=== PATIENT | female | born 1955 | race Caucasian/White ===

== ENCOUNTER → 2018-10-02 14:57 | Outpatient (CLI) | payer OTHER, MEDICARE, SELFPAY ==
--- NOTE | 2018-10-02 15:05 | DI.RAD.S_ITS ---
PROCEDURE: XR SHOULDER LT MIN 2V INDICATIONS: Bilal shoulder injured pins bent TECHNIQUE: 3 views of the shoulder were acquired. COMPARISON: None. FINDINGS: Bones: No fractures or dislocations. No suspicious bony lesions. Visualized ribs appear intact. Moderate acromioclavicular joint or glenohumeral joint osteoarthritis is seen. Soft tissues: No suspicious soft tissue calcifications. IMPRESSION: Moderate left shoulder joint osteoarthritis. No fracture or dislocation. Dictated by: Tonio Conte M.D. on 10/02/2018 at 15:44 Approved by: Tonio Conte M.D. on 10/02/2018 at 15:45
--- NOTE | 2018-10-02 15:05 | DI.RAD.S_ITS ---
PROCEDURE: XR SHOULDER RT MIN 2V INDICATIONS: Bilateral shoulder impingement syndrome TECHNIQUE: 3 views of the shoulder were acquired. COMPARISON: None. FINDINGS: Bones: Moderate acromioclavicular joint and glenohumeral joint osteophyte is seen. No fractures or dislocations. No suspicious bony lesions. Visualized ribs appear intact. Soft tissues: No suspicious soft tissue calcifications. IMPRESSION: Moderate right shoulder joint osteoarthritis. No acute fracture or dislocation. Dictated by: Tonio Conte M.D. on 10/02/2018 at 15:45 Approved by: Tonio Conte M.D. on 10/02/2018 at 15:45
== END ==
PROVIDERS: PCP Family Medicine; Visit Provider Physical Medicine & Rehabilitation
DX: M19.012 Primary osteoarthritis, left shoulder (principal)
CPT/HCPCS: 73030

== ENCOUNTER 2018-12-09 07:31 | Outpatient (CLI) | payer OTHER, MEDICARE, SELFPAY ==
[2018-12-09] VITALS (9 sets, daily range): BP systolic 106–123; BP diastolic 55–78; PULSE 59–70; RESP 16; TEMP 36.7; O2SAT 96–100
--- NOTE | 2018-12-09 07:44 | DI.RAD.S_ITS ---
PROCEDURE: PAIN C/T INTERLAMINAR INJECT INDICATIONS: RADICULOPATHY FINDINGS: Fluoroscopic spot filming was performed to verify placement of spinal needles at the T7-T8 level(s), as labeled on the films. Appropriate location(s) of the needle tip(s) was confirmed by injection of iodinated contrast. Dictated by: Azar Baldwin M.D. on 12/09/2018 at 10:28 Approved by: Azar Baldwin M.D. on 12/09/2018 at 10:29
[2018-12-09] MEDS: fentaNYL 100 MCG/2 ML INJ 50 MCG IV (08:31)
[2018-12-09] MEDS: MIDAZOLAM 5 MG/5 ML VIAL IV (08:31)
[2018-12-09] MEDS: IOPAMIDOL 15 ML VIAL 3 ML INJ (08:41)
[2018-12-09] MEDS: DEXAMETHASONE 10 MG/ML VIAL 30 MG INJ (08:41)
--- NOTE | 2018-12-09 09:01 | PC.NURSE ---
ASSISTING PT OFF TABLE AND TRANSPORTING TO POST PROC AREA IN STABLE CONDITION
--- NOTE | 2018-12-09 09:08 | P.PCN_ITS ---
Procedures Date/Time Date of procedure: 12/09/18 Time of procedure: 09:06 General Procedure description: Preop diagnosis: Thoracic stenosis with HNP Postprocedure diagnosis: Thoracic stenosis with HNP Physician: Chad Villegas D.O. Indications: Kiersten is referred by Dr. Frias for treatment of thoracic DDD/DJD with radiculopathy Description of procedure: Fluoroscopic guided, contrast controlled T7/8 translaminar epidural steroid i njection with conscious sedation. Following review of allergy review potential side effects and complications, including, but not necessarily limited to, infection, allergic reaction, local tissue breakdown, temporary as well as permanent nerve injury, stroke, paralysis and possible , the patient indicated that they understood and agreed to proceed. An informed consent document was signed by the patient, witnessed by the nurse, and placed in the patient's chart. Additionally other treatment options including modalities, medications and physical therapy were reviewed with the patient. After review of previous anaesthesic history and IV conscious sedation the patient was deemed safe to proceed with todays procedure with IV conscious sedation as ASA class II designation. Safety time-out was performed to confirm patient ID, procedure to be performed and site of procedure. IV sedation was accomplished with a combination of 3mg of Versed and 50mcg of Fentanyl administered by the RN after DO order, titrated to patient comfort during the course of the procedure while the patient remained responsive to all verbal commands In the prone position, following sterile prep and drape of the thoracic region the T7/8 translaminar space was identified fluoroscopically. The skin was anesthetized via 25 gauge 1.5 needles with 1% lidocaine solution. At this point a 20 gauge epidural needle was atraumatically introduced and advanced under fluoroscopic guidance into the region of the T7/8 translaminar space depth was confirmed on lateral view. Radiographic data, including multiple fluoroscopic views of the thoracic spine, reveals spinal needle at the T7/8 translaminar space. Lateral views then showed the placement of the needle in the epidural space. Subsequent view show contra st material flowing superiorly and inferiorly in the epidural space. No vascular or intrathecal uptake is observed. At this point using loss of resistance technique with saline and the epidural space was entered. This was confirmed followed negative aspiration and injection of approximately 1.5 cc of Isovue 200 showed excellent epidural flow without vascular or intrathecal uptake. At this point, 1 cc of 1% lidocaine solution was admitted as a test dose and the patient was observed for an appropriate period of time without signs or symptoms of complications, including abdominal pain, shortness of breath, bilateral upper and lower extremity weakness, nausea and vomiting, prior to steroid injection. Subsequently, 3cc or 30mg of dexamethasone was then injected without incident. The patient tolerated the procedure well without signs of complications and subsequently was transferred to the recovery room for further monitoring. The patient was then transferred to the recovery area with their observed for an appropriate time after the injection. Patient reported a VAS score of 7 prior to the procedure and postprocedure VAS of 2. Total fluoroscopy time: 56.3 sec Total conscious sedation time: 24 min Chad Villegas D.O. Complications: none
--- NOTE | 2018-12-09 09:18 | PC.NURSE ---
Pt returned to pre procedure room 904 via wheelchair, awake and alert and able to get from w/c to chair without problems. Resumed monitoring from Sara HANSON.
== END 2018-12-09 09:21 ==
PROVIDERS: PCP Family Medicine; Visit Provider Physical Medicine & Rehabilitation
DX: M51.14 Intervertebral disc disorders with radiculopathy, thoracic region (principal); M48.04 Spinal stenosis, thoracic region
CPT/HCPCS: 62321; 99152; J1100; J2250; J3010

== ENCOUNTER → 2018-12-19 09:40 | Outpatient (CLI) | payer OTHER, MEDICARE, SELFPAY ==
--- NOTE | 2018-12-19 | DI.MG.S_ITS ---
UNILATERAL LEFT DIGITAL DIAGNOSTIC MAMMOGRAM 3D/2D: 12/19/2018 CLINICAL: Left breast pain. Family history of breast cancer. Comparison is made to exams dated: 03/25/2018 mammogram, 04/24/2017 mammogram, and 04/26/2016 mammogram - [facility]. There are scattered fibroglandular elements in left breast. NO new findings to explain symptoms. No significant masses, calcifications, or other findings are seen in the breast. IMPRESSION: NEGATIVE There is no abnormality seen in the left breast to correspond with the diffuse pain, however, clinical followup is recommended. There is no mammographic evidence of malignancy. Return to annual mammogram screening schedule is recommended. Findings and recommendations were conveyed to the patient at time of exam. This exam was interpreted at Station ID: [id number]. NOTE: For mammograms, a report in lay terms will be sent to the patient. Approximately 15% of breast malignancies will not be visualized mammographically. In the management of a palpable breast mass, a negative mammogram must not discourage biopsy of a clinically suspicious lesion. Electronically Signed By: Radha mak/:12/19/2018 10:40:29 letter sent: Normal Exam ACR BI-RADS Category 1: Negative [id number]
== END ==
PROVIDERS: PCP Family Medicine; Visit Provider Nurse Practitioner Obstetrics & Gynecology
DX: N64.4 Mastodynia (principal); Z80.3 Family history of malignant neoplasm of breast
CPT/HCPCS: 77065; G0279

== ENCOUNTER → 2019-05-08 12:04 | Outpatient (CLI) | payer MEDICARE, SELFPAY | PROVIDERS: PCP Family Medicine; Visit Provider Family Medicine | DX: Z12.31 Encounter for screening mammogram for malignant neoplasm of breast (principal) ==

== ENCOUNTER → 2022-10-03 08:50 | Outpatient (CLI) | payer MEDICARE, OTHER, SELFPAY ==
--- NOTE | 2022-10-03 08:53 | DI.RAD.S_ITS ---
PROCEDURE: XR LUMBAR SPINE MIN 4V INDICATIONS: pain TECHNIQUE: 5 views of the lumbar spine were acquired, including bilateral oblique views. COMPARISON: None. FINDINGS: Bones: 5 nonrib-bearing vertebrae are present. There is normal bony alignment. Mild degenerative endplate changes are noted throughout lumbar spine. Finding is most notably at L5-S1 level. No vertebral body compression fractures. No suspicious bony lesions. Soft tissues: Overlying bowel gas pattern is normal. No suspicious soft tissue calcifications. Oblique images: No pars defects. IMPRESSION: Degenerative disc disease throughout lumbar spine most notably at L5-S1 level. No compression fracture or spondylolisthesis. No pars defects. Dictated by: Tonio Conte M.D. on 10/03/2022 at 9:35 Approved by: Tonio Conte M.D. on 10/03/2022 at 9:35
--- NOTE | 2022-10-03 08:53 | DI.RAD.S_ITS ---
PROCEDURE: XR THORACIC SPINE 3V INDICATIONS: THORACIC PAIN TECHNIQUE: 3 views of the thoracic spine were acquired. COMPARISON: None. FINDINGS: Bones: No fractures or dislocations. No suspicious bony lesions. Degenerative endplate changes throughout thoracic spine is seen. 12 pairs of ribs are noted, and appear intact where visualized. Soft tissues: No paravertebral stripe thickening. IMPRESSION: Degenerative disc disease throughout thoracic spine. No acute compression fracture or spondylolisthesis. Dictated by: Tonio Conte M.D. on 10/03/2022 at 9:35 Approved by: Tonio Conte M.D. on 10/03/2022 at 9:38
== END ==
PROVIDERS: PCP Family Medicine; Referring Provider Physical Medicine & Rehabilitation; Visit Provider Physical Medicine & Rehabilitation
DX: M51.24 Other intervertebral disc displacement, thoracic region (principal); M51.34 Other intervertebral disc degeneration, thoracic region; M51.37 Other intervertebral disc degeneration, lumbosacral region; M75.40 Impingement syndrome of unspecified shoulder; M47.816 Spondylosis without myelopathy or radiculopathy, lumbar region; Z98.1 Arthrodesis status
CPT/HCPCS: 72072; 72110; 99214

== ENCOUNTER → 2022-10-07 13:44 | Outpatient (CLI) | payer MEDICARE, OTHER, SELFPAY ==
--- NOTE | 2022-10-07 13:48 | DI.MRI.S_ITS ---
PROCEDURE: MR THORACIC SPINE WO CON INDICATIONS: T7-8 radiculopathy TECHNIQUE: Noncontrast sagittal T1 spine echo and T2 fast spin echo, sagittal STIR, and T2 fast spin echo through the thoracic spine. COMPARISON: [facility], MR, T-SPINE WITHOUT CONTRAST, 03/27/2011, 9:15. [facility], MR, THORACIC SPINE W/O CONTRAST, 03/13/2013, 19:39. [facility], MR, MR THORACIC SPINE WITHOUT CONTRAST, 07/16/2017, 11:32. FINDINGS: Image quality: Excellent. Alignment and Curvature: Accentuated thoracic kyphosis is seen. No focal AP alignment abnormality is seen. Bone Marrow: Marrow is of normal overall signal. No acute vertebral body compression fractures. Spinal Cord: Visualized spinal cord is normal in size and signal. The previously described abnormal signal within the spinal cord itself is not definitely seen on the current study. Paraspinous Soft Tissues: No paravertebral masses. Miscellaneous: At the T7-T8 level, there is again seen a significant central disc extrusion that now measures 1 cm craniocaudal. There is moderate central canal narrowing, with ventral cord flattening. No neural foraminal narrowing is seen. This is progressed compared to the prior. At the T8-T9 level, there is a mild central/right disc protrusion, with minimal central canal narrowing. No neural foraminal narrowing can be seen. This is new compared to the prior. Lower cervical spine fixation hardware is partially seen. IMPRESSION: Progression of the known T7-T8 disc extrusion. New mild central/right disc protrusion at T8-T9. Dictated by: Demar Deluca M.D. on 10/08/2022 at 9:50 Approved by: Demar Deluca M.D. on 10/08/2022 at 9:55
--- NOTE | 2022-10-07 13:48 | DI.MRI.S_ITS ---
PROCEDURE: MR LUMBAR SPINE WO CON INDICATIONS: Right-sided axial low back pain TECHNIQUE: Noncontrast sagittal T1 spin echo and T2 fast echo, sagittal STIR, and T2 fast spin echo through the lumbar spine. In cases with scoliosis, additional coronal T2 fast spin echo may be performed. COMPARISON: [facility], CR, XR LUMBAR SPINE MIN 4V, 10/03/2022, 9:08. [facility], MR, MR THORACIC SPINE WO CON, 10/07/2022, 13:55. FINDINGS: Image quality: Excellent. Alignment and Curvature: There is normal bony alignment. Bone Marrow: Marrow is of normal overall signal. No acute vertebral body compression fractures. Spinal Cord: Conus medullaris terminates at the L1 level. Visualized cord demonstrates normal signal and size. Paraspinous Soft Tissues: No paravertebral masses. A simple appearing 5 cm right renal cyst can be seen. T12-L1: Normal appearance. L1-L2: The disc height and disk signal are well-preserved. Mild generalized disc bulge is seen. Mild bilateral neural foraminal narrowing is seen. No significant central canal narrowing is seen. L2-L3: The disc height and disk signal are well-preserved. Mild to moderate disc bulge is seen. Mild facet joint hypertrophy is seen. Mild bilateral neural foraminal narrowing is seen. Mild central canal narrowing is seen. L3-L4: The disc height is well-preserved. Loss of disc signal is seen at this level. Mild generalized disc bulge is seen. There is a superimposed central disc protrusion. Mild to moderate facet hypertrophy can be seen. There is at least moderate left-sided and moderate right-sided neural foraminal narrowing. Mild to moderate central canal narrowing is seen. L4-L5: Mild loss of disc height is seen. Loss of disc signal is seen. Mild to moderate disc bulge is seen, with a mild central disc extrusion, with mild superior migration of the disc material. There is a focal annular fissure seen posteriorly. Moderate facet joint hypertrophy is seen. There is moderate left-sided and [id number] right-sided neural foraminal narrowing. Moderate central canal narrowing is seen. L5-S1: Moderate to severe loss of disc height and disc signal can be seen. Reactive marrow endplate changes are seen, which are hyperintense on T1-weighted and T2-weighted imaging and most consistent with fatty metaplasia (Modic type II changes). Moderate disc bulge is seen, which is eccentric to the left. There is a focal annular fissure seen posteriorly. Mild to moderate facet hypertrophy is seen, left worse than right. Mild bilateral neural foraminal narrowing is seen. Mild central canal narrowing is seen. IMPRESSION: Multiple levels of lumbar spine degenerative change are seen, which are overall worst inferiorly. Dictated by: Demar Deluca M.D. on 10/08/2022 at 12:35 Approved by: Demar Deluca M.D. on 10/08/2022 at 12:39
== END ==
PROVIDERS: PCP Family Medicine; Referring Provider Physical Medicine & Rehabilitation; Visit Provider Physical Medicine & Rehabilitation
DX: M51.14 Intervertebral disc disorders with radiculopathy, thoracic region (principal); M47.816 Spondylosis without myelopathy or radiculopathy, lumbar region; M47.817 Spondylosis without myelopathy or radiculopathy, lumbosacral region
CPT/HCPCS: 72146; 72148

== ENCOUNTER → 2022-10-09 15:29 | Outpatient (CLI) | payer MEDICARE, OTHER, SELFPAY ==
--- NOTE | 2022-10-09 | DI.RAD.S_ITS ---
Bone Density Report Name: KASSIE RODRIGUEZ Age: 67 Sex: Female Ethnicity: White Date of : 1955 Indication: postmenopausal; screening for osteoporosis; Referring Provider: DYLON KOVACS Study: Bone densitometry was performed. Exam Date: October 09, 2022 Accession number: [id number] Bone Density: Region BMD T-score Z-score Classification AP Spine(L1-L4) 1.039 -0.1 2.0 Normal Femoral Neck (Left) 0.743 -1.0 0.8 Normal Total Hip (Left) 0.882 -0.5 1.0 Normal Femoral Neck (Right) 0.718 -1.2 0.6 Osteopenia Total Hip (Right) 0.910 -0.3 1.2 Normal Total Hip Mean 0.896 -0.4 1.1 Normal World Health Organization criteria for BMD impression classify patients as: Normal (T-score at or above -1.0), Osteopenia (T-score between -1.0 and -2.5), or Osteoporosis (T-score at or below -2.5). 10-year Fracture Risk(1): Major Osteoporotic Fracture 8.7% Hip Fracture 0.9% Reported Risk Factors: [place] (), Neck BMD=0.718, BMI=32.3 (1) FRAX(R) Version 3.08. Fracture probability calculated for an untreated patient. Fracture probability may be lower if the patient has received treatment. Impression: The patient has low bone mass, based on the Right Femoral Neck T-score. The patient has an estimated ten-year risk of hip fracture of 0.9% and an estimated ten-year risk of major fracture of 8.7%, based on the WHO FRAX algorithm. Discussion: BONE DENSITY IS LOW AT ONE OR MORE SKELETAL SITES. This patient's lowest T-score is low at one or more skeletal sites. It meets the World Health Organization's (WHO) criteria for low bone mass (T-score between -1.0 and -2.5). The patient's 10-year risk of fracture as calculated by FRAX is less than the threshold where pharmacological therapy is recommended by the National Osteoporosis Foundation (NOF). However, all treatment decisions require clinical judgment and consideration of individual patient factors, including patient preferences, comorbidities, previous drug use, risk factors not captured in the FRAX model (e.g., frailty, falls, vitamin D deficiency, increased bone turnover, interval significant decline in bone density) and possible under or overestimation of fracture risk by FRAX. The patient should follow a healthful lifestyle (good nutrition with adequate calcium and vitamin D, and appropriate weight-bearing exercise). Follow-Up: Consider repeating this study in 2 to 3 years to reassess this patient's status, or sooner if there is some new clinical indication. Reported by: YOLA GAO MD on 10/09/2022 3:43:00 PM.
== END ==
PROVIDERS: PCP Family Medicine; Referring Provider Family Medicine; Visit Provider Family Medicine
DX: M85.851 Other specified disorders of bone density and structure, right thigh (principal); Z13.820 Encounter for screening for osteoporosis; Z78.0 Asymptomatic menopausal state
CPT/HCPCS: 77080

== ENCOUNTER 2022-11-08 08:25 | Outpatient (CLI) | payer MEDICARE, OTHER, SELFPAY ==
[2022-11-08] VITALS (11 sets, daily range): BP systolic 121–138; BP diastolic 60–73; PULSE 67–74; RESP 13–20; TEMP 36.6; O2SAT 95–99
--- NOTE | 2022-11-08 08:27 | DI.RAD.S_ITS ---
PROCEDURE: PAIN C/T INTERLAMINAR INJECT INDICATIONS: SPINAL STENOSIS COMPARISON: [facility], , PAIN C/T INTERLAMINAR INJECT, 12/09/2018, 8:41. FINDINGS: Fluoroscopic spot filming was performed to verify placement of a spinal needle at the T7-T8 level, as labeled on the films. Appropriate location of the needle tip was confirmed by injection of iodinated contrast. IMPRESSION: No significant intraprocedural abnormality. Dictated by: Demar Deulca M.D. on 11/08/2022 at 9:53 Approved by: Demar Deluca M.D. on 11/08/2022 at 9:53
[2022-11-08] MEDS: MIDAZOLAM 2 MG/2 ML VIAL IV ×2 (09:32→09:41)
[2022-11-08] MEDS: IOPAMIDOL 15 ML VIAL 3 ML INJ (09:38)
[2022-11-08] MEDS: DEXAMETHASONE 10 MG/ML VIAL 30 MG INJ (09:38)
[2022-11-08] MEDS: BUPIVACAINE 0.25% (PF) VIAL 2 ML INJ (09:38)
--- NOTE | 2022-11-08 10:01 | PM.PROC.IR.1 ---
Date/Time/Diagnoses Date of procedure: 11/08/22 Time of procedure: 10:01 Pre-procedure diagnosis: Thoracic stenosis with HNP Post-procedure diagnosis: same Procedure Notes Procedure: Fluoroscopic guided, contrast controlled T7/8 translaminar epidural steroid injection with conscious sedation. Indications: Kiersten is referred by Dr. Frias for treatment of thoracic DDD/DJD with radiculopathy Physician: Chad Villegas Total Fluoroscopy time (seconds): 30 Total sedation minutes: 24 Complications: none Procedure in detail & Post-procedure care: DESCRIPTION OF PROCEDURE Fluoroscopic guided, contrast controlled T7/8 translaminar epidural steroid injection with conscious sedation. Following review of allergy review potential side effects and complications, including, but not necessarily limited to, infection, allergic reaction, local tissue breakdown, temporary as well as permanent nerve injury, stroke, paralysis and possible , the patient indicated that they understood and agreed to proceed. An informed consent document was signed by the patient, witnessed by the nurse, and placed in the patient's chart. Additionally other treatment options including modalities, medications and physical therapy were reviewed with the patient. After review of previous anaesthesic history and IV conscious sedation the patient was deemed safe to proceed with today's procedure with IV conscious sedation as ASA class II designation. Safety time-out was performed to confirm patient ID, procedure to be performed and site of procedure. IV sedation was accomplished with a combination of 4mg of Versed administered by the RN after DO order, titrated to patient comfort during the course of the procedure while the patient remained responsive to all verbal commands In the prone position, following sterile prep and drape of the thoracic region the T7/8 translaminar space was identified fluoroscopically. The skin was anesthetized via 25 gauge 1.5inch needle with 1% lidocaine solution. At this point a 22gauge epidural needle was atraumatically introduced and advanced under fluoroscopic guidance into the region of the T7/8 translaminar space depth was confirmed on lateral view. Radiographic data, including multiple fluoroscopic views of the thoracic spine, reveals spinal needle at the T7/8 translaminar space. Lateral views then showed the placement of the needle in the epidural space. Subsequent view show contrast material flowing superiorly and inferiorly in the epidural space. No vascular or intrathecal uptake is observed. At this point using loss of resistance technique with saline and the epidural space was entered. This was confirmed followed negative aspiration and injection of approximately 1.5cc of Isovue 200 showed excellent epidural flow without vascular or intrathecal uptake. At this point, 1cc of 1% lidocaine solution was admitted as a test dose and the patient was observed for an appropriate period of time without signs or symptoms of complications, including abdominal pain, shortness of breath, bilateral upper and lower extremity weakness, nausea and vomiting, prior to steroid injection. Subsequently, 3cc or 30mg of dexamethasone was then injected without incident. The patient tolerated the procedure well without signs of complications and subsequently was transferred to the recovery room for further monitoring. The patient was then transferred to the recovery area with their observed for an appropriate time after the injection. Patient reported a VAS score of 7 prior to the procedure and post-procedure VAS of 2.
== END 2022-11-08 10:20 | disposition home or self-care (01) ==
PROVIDERS: PCP Family Medicine; Referring Provider Physical Medicine & Rehabilitation; Visit Provider Physical Medicine & Rehabilitation
DX: M48.04 Spinal stenosis, thoracic region; M51.14 Intervertebral disc disorders with radiculopathy, thoracic region
CPT/HCPCS: 62321; 99152; 99153; J1100; J2250; J3490

== ENCOUNTER 2023-01-31 09:29 | Outpatient (CLI) | payer MEDICARE, OTHER, SELFPAY ==
[2023-01-31] VITALS (16 sets, daily range): BP systolic 124–170; BP diastolic 57–75; PULSE 59–72; RESP 10–20; TEMP 36.6; O2SAT 94–100
--- NOTE | 2023-01-31 09:30 | DI.RAD.S_ITS ---
PROCEDURE: PAIN C/T INTERLAMINAR INJECT INDICATIONS: SPINAL STENOSIS COMPARISON: , , PAIN C/T INTERLAMINAR INJECT, 11/08/2022, 9:37. FINDINGS: Fluoroscopic spot filming was performed to verify placement of spinal needles at the T7-T8 interlaminar space level(s), as labeled on the films. Appropriate location(s) of the needle tip(s) was confirmed by injection of iodinated contrast. IMPRESSION: Access needle in the T7-T interlaminar space for translaminar epidural steroid injection. Dictated by: Rebecca Ovalle MD, PhD on 01/31/2023 at 13:46 Approved by: Rebecca Ovalle MD, PhD on 01/31/2023 at 13:46
[2023-01-31] MEDS: MIDAZOLAM 2 MG/2 ML VIAL IV ×2 (10:32→10:40)
[2023-01-31] MEDS: DEXAMETHASONE 10 MG/ML VIAL 20 MG INJ (10:36)
[2023-01-31] MEDS: IOPAMIDOL 15 ML VIAL 3 ML INJ (10:36)
[2023-01-31] MEDS: BUPIVACAINE 0.25% (PF) VIAL 2 ML INJ (10:37)
--- NOTE | 2023-01-31 11:12 | PM.PROC.IR.1 ---
Date/Time/Diagnoses Date of procedure: 01/31/23 Time of procedure: 11:12 Pre-procedure diagnosis: Thoracic stenosis with HNP Post-procedure diagnosis: same Procedure Notes Procedure: Fluoroscopic guided, contrast controlled T7/8 translaminar epidural steroid injection with conscious sedation. Indications: Kiersten is referred by Dr. Frias for treatment of thoracic DDD/DJD with radiculopathy Physician: Chad Villegas Total Fluoroscopy time (seconds): 45 Total sedation minutes: 33 Complications: none Procedure in detail & Post-procedure care: DESCRIPTION OF PROCEDURE Fluoroscopic guided, contrast controlled T7/8 translaminar epidural steroid injection with conscious sedation. Following review of allergy review potential side effects and complications, including, but not necessarily limited to, infection, allergic reaction, local tissue breakdown, temporary as well as permanent nerve injury, stroke, paralysis and possible , the patient indicated that they understood and agreed to proceed. An informed consent document was signed by the patient, witnessed by the nurse, and placed in the patient's chart. Additionally other treatment options including modalities, medications and physical therapy were reviewed with the patient. After review of previous anaesthesic history and IV conscious sedation the patient was deemed safe to proceed with today's procedure with IV conscious sedation as ASA class II designation. Safety time-out was performed to confirm patient ID, procedure to be performed and site of procedure. IV sedation was accomplished with a combination of 4mg of Versed administered by the RN after DO order, titrated to patient comfort during the course of the procedure while the patient remained responsive to all verbal commands In the prone position, following sterile prep and drape of the thoracic region the T7/8 translaminar space was identified fluoroscopically. The skin was anesthetized via 25 gauge 1.5inch needle with 1% lidocaine solution. At this point a 22gauge epidural needle was atraumatically introduced and advanced under fluoroscopic guidance into the region of the T7/8 translaminar space depth was confirmed on lateral view. Radiographic data, including multiple fluoroscopic views of the thoracic spine, reveals spinal needle at the T7/8 translaminar space. Lateral views then showed the placement of the needle in the epidural space. Subsequent view show contrast material flowing superiorly and inferiorly in the epidural space. No vascular or intrathecal uptake is observed. At this point using loss of resistance technique with saline and the epidural space was entered. This was confirmed followed negative aspiration and injection of approximately 1.5cc of Isovue 200 showed excellent epidural flow without vascular or intrathecal uptake. At this point, 1cc of 1% lidocaine solution was admitted as a test dose and the patient was observed for an appropriate period of time without signs or symptoms of complications, including abdominal pain, shortness of breath, bilateral upper and lower extremity weakness, nausea and vomiting, prior to steroid injection. Subsequently, 3cc or 30mg of dexamethasone was then injected without incident. The patient tolerated the procedure well without signs of complications and subsequently was transferred to the recovery room for further monitoring. The patient was then transferred to the recovery area with their observed for an appropriate time after the injection. Patient reported a VAS score of 7 prior to the procedure and post-procedure VAS of 2.
--- NOTE | 2023-01-31 13:09 | PC.NURSE ---
Patient received post injection in NAD, VSS. Protocol for sedation timeline met, 40 min post sedation. Patient with baseline strength and mobility without numbness. Criteria met for discharge. Discharged home, patient assisted via WC out to vehicle and was able to ambulate from WC to vehicle without difficulty. Received call from Dr. Villegas that the patient is experience numbness and was unable to get out of her vehicle into her house. Plan for her to come back for monitoring. Patient back to pre-post room at [address] Villegas at chair side to evaluate. VSS, patient c/o pain 5/10 with numbness to bilateral buttocks and right leg. Able to [place], no weakness I just can't feel my butt and leg. Plan to monitor closely.
--- NOTE | 2023-01-31 13:42 | PC.NURSE ---
Pt states that her numbness is 90% better than when she came back from her initial appointment. Md in talking with patient now, will plan discharge soon.
--- NOTE | 2023-01-31 14:05 | PC.NURSE ---
Numbness is 100% gone at this time per patient
--- NOTE | 2023-01-31 14:21 | PC.NURSE ---
MD in room, ok with discharging patient. Pt walked out without any complications.
== END 2023-01-31 14:22 | disposition home or self-care (01) ==
PROVIDERS: PCP Family Medicine; Referring Provider Physical Medicine & Rehabilitation; Visit Provider Physical Medicine & Rehabilitation
DX: M48.04 Spinal stenosis, thoracic region (principal); M51.14 Intervertebral disc disorders with radiculopathy, thoracic region
CPT/HCPCS: 62321; 99152; 99153; J1100; J2250; J3490

== ENCOUNTER → 2023-02-07 14:25 | Outpatient (CLI) | payer MEDICARE, OTHER, SELFPAY ==
--- NOTE | 2023-02-07 14:27 | DI.MRI.S_ITS ---
PROCEDURE: MR THORACIC SPINE WO/W CON INDICATIONS: Pain status post thoracic RODRI TECHNIQUE: Noncontrast sagittal T1 spin echo and T2 fast spin echo, sagittal STIR, axial T1 and T2 fast spin echo through the thoracic spine. After the administration of contrast, axial and sagittal T1 spin echo with fat saturation through the thoracic spine. COMPARISON: [facility], MR, THORACIC SPINE W/O CONTRAST, 03/13/2013, 19:39. [facility], MR, MR THORACIC SPINE WITHOUT CONTRAST, 07/16/2017, 11:32. [facility], MR, MR THORACIC SPINE WO CON, 10/07/2022, 13:55. FINDINGS: Image quality: This examination is limited by involuntary motion artifact. Alignment and curvature: Accentuated thoracic kyphosis is seen. No focal AP alignment abnormality is seen. Marrow: Marrow is of normal overall signal. No acute vertebral body compression fractures. Spinal cord: Visualized spinal cord is of normal signal and size, without abnormal enhancement. Paraspinous soft tissues: No paravertebral masses or abnormal enhancement. Miscellaneous: At the T7-T8 level, there is a central disc extrusion again seen, with mild to moderate central canal narrowing and moderate mass effect upon the ventral spinal cord. No significant neural foraminal narrowing can be seen. There is a minimal central/right disc protrusion seen at the T8-T9 level. No significant neural foraminal or central canal narrowing can be seen. Milder degenerative changes are seen elsewhere. IMPRESSION: No abnormal enhancement is seen. No postprocedural complication can be seen. Stable central disc extrusion seen at the T7-T8 level. Dictated by: Demar Deluca M.D. on 02/07/2023 at 15:54 Approved by: Demar Deluca M.D. on 02/07/2023 at 15:59
== END ==
PROVIDERS: PCP Family Medicine; Referring Provider Physical Medicine & Rehabilitation; Visit Provider Physical Medicine & Rehabilitation
DX: M51.24 Other intervertebral disc displacement, thoracic region (principal); M51.34 Other intervertebral disc degeneration, thoracic region
CPT/HCPCS: 72157; A9579

== ENCOUNTER 2023-10-31 08:14 | Outpatient (CLI) | payer MEDICARE, OTHER, SELFPAY ==
[2023-10-31] VITALS (21 sets, daily range): BP systolic 96–160; BP diastolic 52–112; PULSE 56–75; RESP 11–22; TEMP 36; O2SAT 94–100
--- NOTE | 2023-10-31 08:45 | DI.RAD.S_ITS ---
PROCEDURE: PAIN C/T INTERLAMINAR INJECT INDICATIONS: T7-8 translaminar RODRI LEFT COMPARISON: [facility], , PAIN C/T INTERLAMINAR INJECT, 01/31/2023, 10:36. FINDINGS: Fluoroscopic spot filming was performed to verify placement of spinal needles at the T7-8 level(s), as labeled on the films. Appropriate location(s) of the needle tip(s) was confirmed by injection of iodinated contrast. IMPRESSION: Intraoperative guidance provided. Dictated by: Fernando Vang M.D. on 10/31/2023 at 10:20 Approved by: Fernando Vang M.D. on 10/31/2023 at 10:20
[2023-10-31] MEDS: MIDAZOLAM 2 MG/2 ML VIAL IV (09:07)
[2023-10-31] MEDS: LIDOCAINE 2% INJ MDV 20ML 5 ML INJ (09:12)
[2023-10-31] MEDS: DEXAMETHASONE 10 MG/ML VIAL 30 MG INJ (09:12)
[2023-10-31] MEDS: iopamidoL 15 ML VIAL 3 ML INJ (09:13)
[2023-10-31] MEDS: fentaNYL 100 MCG/2 ML INJ 50 MCG IV (09:20)
--- NOTE | 2023-10-31 09:30 | P.PCN_ITS ---
Date/Time/Diagnoses Date of procedure: 10/31/23 Time of procedure: 09:30 Pre-procedure diagnosis: 1. FORAMINAL STENOSIS WITH LE SYMPTOMS Post-procedure diagnosis: same Procedure Notes Procedure: 1. FLUOROSCOPICALLY GUIDED CONTRAST CONTROLLED TRANSFORAMINAL EPIDURAL STEROID INJECTION - LEFT T7/8 TFESI Indications: Kiersten is referred by Dr. Walker for treatment of Foraminal Stenosis with left thoracic Symptoms Physician: Chad Villegas Total Fluoroscopy time (seconds): 18 Total sedation minutes: 17 Complications: none Procedure in detail & Post-procedure care: FINDINGS Foraminal Nerve Root Compression secondary to disc disease and facet hypertrophy DESCRIPTION OF PROCEDURE Following review of allergy and review of potential side effects and complications, including, but not necessarily limited to, infection, allergic reaction, local tissue breakdown, stroke, temporary or permanent nerve injury, paralysis, and possible , the patient indicated that the patient understood and agreed to proceed. An informed consent document was signed by the patient, witnessed by a nurse, and placed in the patient's chart. Additionally, other treatment options including medications, modalities, and physical therapy were reviewed with the patient. After review of previous anaesthesic history and IV conscious sedation the patient was deemed safe to proceed with today?s procedure with IV conscious sedation as ASA class II designation. Safety time-out was performed to confirm patient ID, procedure to be performed and site of procedure. IV sedation was accomplished with a combination of 2mg of Versed and 50mcg of Fentanyl was administered by the RN after DO order, titrated to patient comfort during the course of the procedure while the patient remained responsive to all verbal commands In the prone position following sterile prep and drape of the lumbar region, the left T7/8 posterior neuroforamen was identified fluoroscopically. The skin was anesthetized via a 25-gauge 1.5-inch needle with 1% lidocaine solution. At this point, a 25-gauge 3.5-inch spinal needle was atraumatically introduced and advanced under fluoroscopic guidance through the posterior left T7/8 neuroforamen to approximately the anterior aspect of the canal. Depth was confirmed on lateral view. Following negative aspiration, injection of approximately 1.5cc of Isovue 200 under live fluoroscopy in the AP view confirmed excellent flow along the nerve root, into the epidural space without vascular or intrathecal uptake observed Radiological data, including multiple fluoroscopic views reveal the needle placement in the left T7/8 posterior neuroforamen. Subsequent views show flow of contrast material flowing superiorly and inferiorly along the nerve root confirming epidural flow. Subsequently, a test dose of 1.5cc of 1% lidocaine solution was administered and patient was observed for signs or symptoms of complications, including abdominal pain, shortness of breath, bilateral upper or lower extremity weakness, nausea and vomiting, prior to steroid injection. At this point, a total of 3cc or 30mg of dexamethasone was injected without incident. The procedure tolerated the procedure well without signs or symptoms of complications prior to transfer to the recovery area continued monitoring without incident. The patient was then transferred to the recovery area where they were observed for an appropriate time after the injection. The patient reported a VAS score of 7 prior to the procedure and a post- procedure VAS of 0. POST OP INSTRUCTIONS The patient was provided a Pain Log to continue to record their response to the target-specific procedure prior to follow-up visit with their referring physician. Additionally, specific post-injection care instructions and a contact number to our office were provided if concerns arise regarding possible complications associated with the procedure are suspected.
[2023-10-31] MEDS: ONDANSETRON 4 MG/2 ML INJ IV (09:45)
--- NOTE | 2023-10-31 10:04 | PC.NURSE ---
Dr. Villegas wanted us to hold on to the patient longer than usual d/t latent numbness after her last injection. Patient stated that she felt light headed and nauseous at 0942. Dr. Villegas gave an order for 4mg Ondansetron IV. Given at 0945 by Sahra Ferguson RN.
[2023-10-31] MEDS: SODIUM CHLORIDE 0.9% 500 ML 1000 ML IV (10:15)
--- NOTE | 2023-10-31 10:59 | PC.NURSE ---
1015 Patient's BP and pulse still running low and patient stated that she is still feeling a bit nauseous. Dr. Villegas in the post procedure room and ordered an IV blolus of 500mL 0.9%NACL IV. Bolus started at 1015 per verbal order by this nurse.
--- NOTE | 2023-10-31 11:01 | PC.NURSE ---
1045 - 500mL 0.9% NaCl Bolus almost complete. reassessed the patientin the post procedure room. She has no numbness or SOB. Her nausea has also subsided and she states that she is ready to go home. She also stated that her BP usually runs low. Typically it's around 112/60. Patient DC'd at 1051.
== END 2023-10-31 10:51 | disposition home or self-care (01) ==
PROVIDERS: Referring Provider Physical Medicine & Rehabilitation; Visit Provider Physical Medicine & Rehabilitation
DX: M51.14 Intervertebral disc disorders with radiculopathy, thoracic region (principal); M48.04 Spinal stenosis, thoracic region; M47.24 Other spondylosis with radiculopathy, thoracic region
CPT/HCPCS: 64479; 99152; J1100; J2250; J2405; J3010

== ENCOUNTER → 2024-01-03 11:18 | Outpatient (CLI) | payer MEDICARE, OTHER, SELFPAY ==
--- NOTE | 2024-01-03 11:20 | DI.CT.S_ITS ---
PROCEDURE: CT THORACIC SPINE WO CON INDICATIONS: Other intervertebral disc displacement, thoracic region TECHNIQUE: Noncontrast 3 mm thick sections acquired through the region of interest in the thoracic spine. Sagittal and coronal reformats were then constructed. For radiation dose reduction, the following was used: automated exposure control. COMPARISON: [facility], MR, MR THORACIC SPINE WO/W CON, 02/07/2023, 14:38. [facility], MR, MR THORACIC SPINE WO CON, 10/07/2022, 13:55. FINDINGS: Image quality: This examination is limited by involuntary motion artifact. Bones: No acute vertebral body compression fractures. No suspicious sclerotic or lytic bony lesions. Central spinal canal is of normal overall caliber. Lower cervical spine fixation hardware is noted. Accentuated thoracic kyphosis is seen. No focal AP alignment abnormality is seen. Multiple levels of degenerative change can be seen, with scattered levels of [id number] disc space narrowing, with associated endplate irregularity and sclerosis. At the T7-T8 level, there is a central disc bulge seen, with post erected endplate osteophytes. Mild central canal narrowing can be seen at this level. Milder degenerative changes are seen elsewhere. Soft tissues: No paravertebral masses or hematomas. Visualized posteromedial lungs appear clear. A 3 mm nonobstructing stone, as on series 3, image 98. IMPRESSION: Focal T7-T8 degenerative change seen, with a central disc osteophyte protrusion. Dictated by: Demar Deluca M.D. on 01/03/2024 at 14:56 Approved by: Demar Deluca M.D. on 01/03/2024 at 14:59
== END ==
LOC: CT 11:19
PROVIDERS: PCP Family Medicine; Referring Provider Physical Medicine & Rehabilitation; Visit Provider Physical Medicine & Rehabilitation
DX: M51.24 Other intervertebral disc displacement, thoracic region (principal); M47.814 Spondylosis without myelopathy or radiculopathy, thoracic region
CPT/HCPCS: 72128

== ENCOUNTER 2024-03-03 09:01 | Outpatient (CLI) | payer MEDICARE, OTHER, SELFPAY ==
[2024-03-03] VITALS (9 sets, daily range): BP systolic 120–149; BP diastolic 58–81; PULSE 60–68; RESP 9–19; TEMP 36.1; O2SAT 96–100
--- NOTE | 2024-03-03 09:30 | DI.RAD.S_ITS ---
PROCEDURE: PAIN C/T INTERLAMINAR INJECT INDICATIONS: SPONDYLOSIS COMPARISON: [facility], , PAIN C/T INTERLAMINAR INJECT, 10/31/2023, 9:11. FINDINGS: Fluoroscopic spot filming was performed to verify placement of spinal needles at the T7-8 level(s), as labeled on the films. Appropriate location(s) of the needle tip(s) was confirmed by injection of iodinated contrast. IMPRESSION: Needle and contrast localization overlying T7-8. Dictated by: Erika Mercer M.D. on 03/03/2024 at 17:46 Approved by: Erika Mercer M.D. on 03/03/2024 at 17:46
[2024-03-03] MEDS: MIDAZOLAM 2 MG/2 ML VIAL IV (10:04)
[2024-03-03] MEDS: iopamidoL 15 ML VIAL 3 ML INJ (10:06)
[2024-03-03] MEDS: DEXAMETHASONE 10 MG/ML VIAL 30 MG INJ (10:07)
[2024-03-03] MEDS: BUPIVACAINE 0.25% (PF) VIAL 2 ML INJ (10:08)
[2024-03-03] MEDS: DEXAMETHASONE 10 MG/ML VIAL INJ (10:09)
--- NOTE | 2024-03-03 10:26 | P.PCN_ITS ---
Date/Time/Diagnoses Date of procedure: 03/03/24 Time of procedure: 10:26 Pre-procedure diagnosis: 1. FORAMINAL STENOSIS WITH LE SYMPTOMS Post-procedure diagnosis: same Procedure Notes Procedure: 1. FLUOROSCOPICALLY GUIDED CONTRAST CONTROLLED TRANSFORAMINAL EPIDURAL STEROID INJECTION - BILATERAL T7/8 TFESI Indications: Kiersten is referred by Dr. Walker for treatment of Foraminal Stenosis with L>R thoracic Symptoms Physician: Chad Villegas Total Fluoroscopy time (seconds): 19 Total sedation minutes: 17 Complications: none Procedure in detail & Post-procedure care: FINDINGS Foraminal Nerve Root Compression secondary to disc disease and facet hypertrophy DESCRIPTION OF PROCEDURE Following review of allergy and review of potential side effects and complications, including, but not necessarily limited to, infection, allergic reaction, local tissue breakdown, stroke, temporary or permanent nerve injury, paralysis, and possible , the patient indicated that the patient understood and agreed to proceed. An informed consent document was signed by the patient, witnessed by a nurse, and placed in the patient's chart. Additionally, other treatment options including medications, modalities, and physical therapy were reviewed with the patient. After review of previous anaesthesic history and IV conscious sedation the patient was deemed safe to proceed with today?s procedure with IV conscious sedation as ASA class II designation. Safety time-out was performed to confirm patient ID, procedure to be performed and site of procedure. IV sedation was accomplished with a combination of 2mg of Versed was administered by the RN after DO order, titrated to patient comfort during the course of the procedure while the patient remained responsive to all verbal commands In the prone position following sterile prep and drape of the lumbar region, the right T8-9 posterior neuroforamen was identified fluoroscopically. The skin was anesthetized via a 25-gauge 1.5-inch needle with 1% lidocaine solution. At this point, a 25-gauge 3.5-inch spinal needle was atraumatically introduced and advanced under fluoroscopic guidance through the posterior right T8-9 neuroforamen to approximately the anterior aspect of the canal. Depth was confirmed on lateral view. Following negative aspiration, injection of approximately 1.5cc of Isovue 200 under live fluoroscopy in the AP view confirmed excellent flow along the nerve root, into the epidural space without vascular or intrathecal uptake observed. Radiological data, including multiple fluoroscopic views reveal the needle placement in the right T8/9 posterior neuroforamen. Subsequent views show flow of contrast material flowing superiorly and inferiorly along the nerve root confirming epidural flow. Subsequently, a test dose of 1.5cc of 1% lidocaine solution was administered and patient was observed for signs or symptoms of complications, including abdominal pain, shortness of breath, bilateral upper or lower extremity weakness, nausea and vomiting, prior to steroid injection. At this point, a total of 2cc or 20mg of dexamethasone was injected without incident. Once completed on the right the procedure was replicated on the left. The procedure tolerated the procedure well without signs or symptoms of complications prior to transfer to the recovery area continued monitoring without incident. The patient was then transferred to the recovery area where they were observed for an appropriate time after the injection. The patient reported a VAS score of 9 prior to the procedure and a post-pro cedure VAS of 1. POST OP INSTRUCTIONS The patient was provided a Pain Log to continue to record their response to the target-specific procedure prior to follow-up visit with their referring physician. Additionally, specific post-injection care instructions and a contact number to our office were provided if concerns arise regarding possible complications associated with the procedure are suspected.
== END 2024-03-03 10:45 | disposition home or self-care (01) ==
PROVIDERS: PCP Family Medicine; Referring Provider Physical Medicine & Rehabilitation; Visit Provider Physical Medicine & Rehabilitation
DX: M48.04 Spinal stenosis, thoracic region (principal); M51.14 Intervertebral disc disorders with radiculopathy, thoracic region; M47.24 Other spondylosis with radiculopathy, thoracic region
CPT/HCPCS: 64479; 99152; J1100; J2250; J3490

== ENCOUNTER 2024-10-20 08:51 | Outpatient (CLI) | payer MEDICARE, OTHER, SELFPAY ==
[2024-10-20] VITALS (10 sets, daily range): BP systolic 107–151; BP diastolic 55–98; PULSE 69–75; RESP 14–16; TEMP 36.3; O2SAT 95–99
[2024-10-20] MEDS: MIDAZOLAM 2 MG/2 ML VIAL IV (09:41)
[2024-10-20] MEDS: DEXAMETHASONE 10 MG/ML VIAL 20 MG INJ (09:47)
[2024-10-20] MEDS: BUPIVACAINE 0.25% (PF) VIAL 2 ML INJ (09:48)
[2024-10-20] MEDS: BETAMETHASONE 30 MG/5 ML MDV 12 MG INJ (09:48)
[2024-10-20] MEDS: iopamidoL 15 ML VIAL 3 ML INJ (09:48)
[2024-10-20] MEDS: BETAMETHASONE 30 MG/5 ML MDV 6 MG INJ (09:49)
[2024-10-20] MEDS: LIDOCAINE 1% 20 ML INJ (09:50)
--- NOTE | 2024-10-20 10:07 | P.PCN_ITS ---
Date/Time/Diagnoses Date of procedure: 10/20/24 Time of procedure: 10:08 Pre-procedure diagnosis: 1. FORAMINAL STENOSIS WITH LE SYMPTOMS Post-procedure diagnosis: same Procedure Notes Procedure: 1. FLUOROSCOPICALLY GUIDED CONTRAST CONTROLLED TRANSFORAMINAL EPIDURAL STEROID INJECTION - BILATERAL T7/8 TFESI Indications: Kiersten is referred by MAGDA Restrepo for treatment of Foraminal Stenosis with L>R thoracic Symptoms Physician: Chad Villegas Total Fluoroscopy time (seconds): 24 Total sedation minutes: 22 Complications: none Procedure in detail & Post-procedure care: FINDINGS Foraminal Nerve Root Compression secondary to disc disease and facet hypertrophy DESCRIPTION OF PROCEDURE Following review of allergy and review of potential side effects and complications, including, but not necessarily limited to, infection, allergic reaction, local tissue breakdown, stroke, temporary or permanent nerve injury, paralysis, and possible , the patient indicated that the patient understood and agreed to proceed. An informed consent document was signed by the patient, witnessed by a nurse, and placed in the patient's chart. Additionally, other treatment options including medications, modalities, and physical therapy were reviewed with the patient. After review of previous anaesthesic history and IV conscious sedation the patient was deemed safe to proceed with today?s procedure with IV conscious sedation as ASA class II designation. Safety time-out was performed to confirm patient ID, procedure to be performed and site of procedure. IV sedation was accomplished with a combination of 2mg of Versed was administered by the RN after DO order, titrated to patient comfort during the course of the procedure while the patient remained responsive to all verbal commands In the prone position following sterile prep and drape of the lumbar region, the right T8-9 posterior neuroforamen was identified fluoroscopically. The skin was anesthetized via a 25-gauge 1.5-inch needle with 1% lidocaine solution. At this point, a 25-gauge 3.5-inch spinal needle was atraumatically introduced and advanced under fluoroscopic guidance through the posterior right T8-9 neuroforamen to approximately the anterior aspect of the canal. Depth was confirmed on lateral view. Following negative aspiration, injection of approximately 1.5cc of Isovue 200 under live fluoroscopy in the AP view confirmed excellent flow along the nerve root, into the epidural space without vascular or intrathecal uptake observed. Radiological data, including multiple fluoroscopic views reveal the needle placement in the right T8/9 posterior neuroforamen. Subsequent views show flow of contrast material flowing superiorly and inferiorly along the nerve root confirming epidural flow. Subsequently, a test dose of 1.5cc of 1% lidocaine solution was administered and patient was observed for signs or symptoms of complications, including abdominal pain, shortness of breath, bilateral upper or lower extremity weakness, nausea and vomiting, prior to steroid injection. At this point, a total of 4cc or 20mg of dexamethasone and 12mg of betamethasone was injected without incident. Once completed on the right the procedure was replicated on the left. The procedure tolerated the procedure well without signs or symptoms of complications prior to transfer to the recovery area continued monitoring without incident. The patient was then transferred to the recovery area where they were observed for an appropriate time after the injection. The patient reported a VAS score of 9 prior to the procedure and a post- procedure VAS of 1. POST OP INSTRUCTIONS The patient was provided a Pain Log to continue to record their response to the target-specific procedure prior to follow-up visit with their referring physician. Additionally, specific post-injection care instructions and a contact number to our office were provided if concerns arise regarding possible compl ications associated with the procedure are suspected.
== END 2024-10-20 10:28 | disposition home or self-care (01) ==
LOC: RAD 08:51
PROVIDERS: PCP Nurse Practitioner Family; Referring Provider Physical Medicine & Rehabilitation; Visit Provider Physical Medicine & Rehabilitation
DX: M48.04 Spinal stenosis, thoracic region (principal); M51.14 Intervertebral disc disorders with radiculopathy, thoracic region; M47.24 Other spondylosis with radiculopathy, thoracic region
CPT/HCPCS: 64479; 99152; J0702; J1100; J2250; J3490

== ENCOUNTER → 2025-03-03 07:51 | Outpatient (CLI) | payer MEDICARE, OTHER, SELFPAY ==
--- NOTE | 2025-03-03 07:52 | DI.MRI.S_ITS ---
PROCEDURE: MR HIP RT WO CON INDICATIONS: Right lateral hip TECHNIQUE: Noncontrast coronal T1 spin echo and STIR through the bony pelvis. Coronal and axial T2 fast spin echo with fat saturation, sagittal T1 spin echo, and oblique axial T2 fast spin echo with fat saturation through the hip. COMPARISON: None. FINDINGS: Image quality: Excellent. Bones and joints: Bone marrow of the pelvic ring and proximal femurs show normal signal throughout. No intraosseous lesions or fractures. No avascular necrosis of the femoral head. Degenerative disc disease and facet hypertrophy are seen in the included spine. Mild degenerative changes at the pubic symphysis. Tendons and ligaments: The gluteus medius and minimus tendons demonstrate mild tendinosis as well as low-grade partial tearing at the anterior right gluteus medius tendon insertion with trace overlying trochanteric bursal fluid. The proximal iliotibial band appears intact. The iliopsoas tendon appears intact, without adjacent bursal fluid collections. The origin of the right hamstring tendon demonstrates mild tendinosis. Mild heterogeneity of the left hamstring tendon on coronal images may be related to a remote prior injury and is not well evaluated. The tendons for the direct and indirect heads of the rectus femoris muscle appear intact. Labrum and cartilage: High-grade cartilage loss is seen at the posterior superior aspect of the right hip with marginal osteophyte formation. Diffuse labral degeneration is seen with superimposed chronic tearing at the posterior superior labrum. Physiologic amount of right hip fluid is present. Normal morphology of the femoral head and acetabulum. Soft tissues: Visualized muscles demonstrate normal bulk and internal signal. Quadratus femoris muscle demonstrates no internal edema to suggest ischiofemoral impingement. The proximal sciatic neurovascular bundle appears normal adjacent to the hamstring tendons. Multiple diverticula are seen in the colon without signs of acute diverticulitis. IMPRESSION: 1. Moderate right hip osteoarthrosis with grade 3 chondromalacia and small marginal osteophytes. 2. Diffuse right acetabular labral degeneration with superimposed chronic tearing of the posterior superior labrum. 3. [id number] right gluteus medius and minimus tendinosis with superimposed focal low-grade partial tearing of the gluteus medius tendon at the anterior insertion onto the greater trochanter. 4. Mild proximal right hamstring tendinosis. 5. Degenerative changes are also noted in the pubic symphysis and included spine. Approved by: Dinh Tijerina M.D. on 03/03/2025 at 12:26
--- NOTE | 2025-03-03 07:53 | DI.RAD.S_ITS ---
PROCEDURE: XR HIP W PEL IF DONE RT 2V INDICATIONS: Right lateral hip TECHNIQUE: 2 views of the hip were acquired. COMPARISON: None. FINDINGS: Bones: Ununited remote avulsion fracture of the left lesser trochanter appreciated. 1 cm exostosis projects from the left obturator ring SI and hip joints: Normal in width and alignment without arthritic change Soft tissues: No soft tissue swelling, calcification or mass. IMPRESSION: Old avulsion fracture left lesser trochanter Dictated by: Ry Jordan M.D. on 03/03/2025 at 12:10 Approved by: Ry Jordan M.D. on 03/03/2025 at 12:11
== END ==
PROVIDERS: PCP Nurse Practitioner Family; Referring Provider Physical Medicine & Rehabilitation; Visit Provider Physical Medicine & Rehabilitation
DX: M16.11 Unilateral primary osteoarthritis, right hip (principal); S73.191A Other sprain of right hip, initial encounter; M94.251 Chondromalacia, right hip; M67.951 Unspecified disorder of synovium and tendon, right thigh; S72.122 Displaced fracture of lesser trochanter of left femur
CPT/HCPCS: 73502; 73721